=== PATIENT | female | born 1965 | race Caucasian/White ===

== ENCOUNTER 2024-12-13 14:21 | Emergency (ER) | payer BC, SELFPAY ==
[2024-12-13 14:29] VITALS: BP 117/93; PULSE 87; RESP 18; TEMP 36.4; O2SAT 97
[2024-12-13 17:21] VITALS: O2SAT 100
--- NOTE | 2024-12-13 17:21 | ED_ITS ---
HPI - Recheck/Abnormal Lab/Rx General Chief Complaint: Recheck/Abnormal Lab/Rx Stated Complaint: thyroid prescription Time Seen by Provider: 12/13/24 17:10 Source: patient Mode of arrival: ambulatory Limitations: no limitations History of Present Illness HPI narrative: This is a 59 year old female that presents to the ER for medication refill. Reports she ran out of her levothyroxine 1 week ago. She takes 125 mcg. She has been on this dose for years. She recently moved here and does not currently have a PCP. Related Data Allergies Allergy/AdvReac Type Severity Reaction Status Date / Time No Known Allergies Allergy Verified 12/13/24 14:28 Review of Systems Review of Systems: All systems reviewed & are unremarkable except as noted in HPI and below PMFSH Past Medical History Medical History (Updated 12/13/24 @ 17:25 by Naila Almaguer PA-C) History of hypothyroidism Exam Narrative: GENERAL: Well-appearing, well-nourished, and in no acute distress. HEAD: Normocephalic, atraumatic. EYES: EOMI. CHEST: No respiratory distress. HEART: Regular rate EXTREMITIES: Normal range of motion. No edema. SKIN: Warm, dry, no rash. NEURO: No focal deficits. Alert and oriented x3. PSYCH: Normal mood and affect Course Vital Signs Vital signs: Vital Signs Temperature 97.5 F L 12/13/24 14:29 Pulse Rate 87 12/13/24 14:29 Respiratory Rate 18 12/13/24 14:29 Blood Pressure 117/93 H 12/13/24 14:29 Pulse Oximetry 97 12/13/24 14:29 Temperature 97.5 F L 12/13/24 14:29 Pulse Rate 87 12/13/24 14:29 Respiratory Rate 18 12/13/24 14:29 Blood Pressure 117/93 H 12/13/24 14:29 Pulse Oximetry 97 12/13/24 14:29 MDM - Recheck/Abnormal Lab/Rx MDM Narrative Medical decision making narrative: Patient presents to the emergency department for medication refill. Reports she has been out of her levothyroxine for a week. She has been on the same dose for years. She does not want any blood work here in the ER. Reports she will follow-up with the PCP Differential Diagnosis Differential diagnosis: Likely encounter for medication refill Critical Care Time Critical Care Time Critical Care Time: No Discharge Plan Discharge Clinical Impression: Encounter for medication refill Patient Disposition: Home Condition: Stable Instructions: Levothyroxine (By mouth), Medicine Refill (ED) Patient Language: Kyr[place]z Prescriptions: New levothyroxine 125 mcg capsule 125 mcg PO DAILY 30 Days Qty: 30 0RF Follow-up/Referrals: Scott Babb MD [Physician, Family Practice] PHYSICIAN,[employer]ATOR [Primary Care Provider, Internal Medicine]
[2024-12-13 17:23] VITALS: BP 119/69; PULSE 91; RESP 18; O2SAT 96
== END 2024-12-13 17:27 | disposition home or self-care (01) ==
PROVIDERS: Emergency Provider Physician Assistant
DX: E03.9 Hypothyroidism, unspecified (principal); Z76.0 Encounter for issue of repeat prescription
CPT/HCPCS: 99281; L0140